=== PATIENT | male | born 2000 | race African-American/Black ===

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

== ENCOUNTER → 2018-01-21 | Outpatient (CLI) | payer BC ==
--- NOTE | 2018-01-21 10:27 | Diagnostic Imaging Report ---
INDICATION: Chest pain. TIME OF EXAM: 10:00 AM No prior studies are available for comparison. FINDINGS: The heart size is normal. The pulmonary vascularity is unremarkable. The lungs are clear. No infiltrate, effusion or pneumothorax is detected. IMPRESSION: No acute cardiopulmonary process is detected. Dictated by: Dictated on workstation # [id number]
== END ==
LOC: CARD 09:27
PROVIDERS: ATTEND Pediatrics
DX: R07.9 Chest pain, unspecified (principal)
CPT/HCPCS: 71046; 93005

== ENCOUNTER 2018-11-09 09:29 | Emergency (ER) | payer BC ==
[~2018-11-09] VITALS: Ht 182.9 cm; Wt 113.4 kg
--- OUTSIDE RECORDS SUMMARY | 2018-11-09 09:36 | XMS REPORT | Continuity of Care Document ---
Demographics Preferred Language Unknown Marital Status Unknown Gnosticist Affiliation Unknown Race Unknown Ethnic Group Unknown Author Author [facility] Address Unknown Phone Unavailable Allergies There is no data. Medications There is no data. Problems Date Dx Coded Attending Type Code Diagnosis Diagnosed By 03/07/2012 783.42 DELAYED MILESTONES Procedures There is no data. Results There is no data. Encounters ACCT No. Visit Date/Time Discharge Status Pt. Type Provider Facility Loc./Unit Complaint [id number] 03/07/2012 15:58:00 03/07/2012 23:59:59 CLS Outpatient [id number] 10/09/2012 18:54:12 RECURRING
--- NOTE | 2018-11-09 10:25 | Diagnostic Imaging Report ---
INDICATION: Fall, right shoulder pain 3 views of the right shoulder show no fracture or dislocation. There is slight irregularity of the inferior aspect of the glenoid. This could be residual of old fracture but acute process at this site cannot totally be excluded. If the patient has symptoms referrable to this area and if further evaluation is felt necessary CT may be helpful. IMPRESSION: There is slight irregularity of the inferior glenoid. No other abnormality is seen. Dictated by: Dictated on workstation # [id number]
[2018-11-09] MEDS ORDERED: HYDR-3812 PO (11:04)
--- NOTE | 2018-11-09 11:04 | ED Upper Extremity ---
General Chief Complaint: Upper Extremity Stated Complaint: ARM PAIN DUE TO FALL Nursing Triage Note: FELL LAST NIGHT ON ICE HURTING RIGHT UPPER AND LOWER ARM. STATES HE TOOK IBUPROFEN THAT DID HELP A LITTLE Nursing Sepsis Screen: No Definite Risk Source: patient Exam Limitations: no limitations Allergies and Home Medications Allergies Coded Allergies: No Known Drug Allergies (Unverified , 11/09/18) Home Medications No Active Prescriptions or Reported Meds Past Rgczkkh-Rjttub-Mxdaez Hx Patient Social History Alcohol Use: Rarely Uses Recreational Drug Use: No Smoking Status: Never a Smoker Recent Foreign Travel: No Contact w/Someone Who Travel: No Recent Infectious Disease Expo: No Past Medical History Surgeries: No Respiratory: Yes (CHILDHOOD ASTHMA) Neurological: No Gastrointestinal: No Musculoskeletal: No Endocrine: No HEENT: No Cancer: No Psychosocial: No Integumentary: No Physical Exam Vital Signs Vital Signs - First Documented 11/09/18 09:38 Temp 96.8 Pulse 71 Resp 16 B/P (MAP) 142/104 (117) Pulse Ox 97 O2 Delivery Room Air Capillary Refill : Less Than 3 Seconds Height, Weight, BMI Height: 6'" Weight: 250lbs. oz. 113.347836tn; BMI Method:Stated Progress/Results/Core Measures Results/Orders My Orders Orders - AGNIESZKA ROWLAND MD Shoulder, Right, 3 Views (11/09/18 09:54) Ct Extremity Upper Right Wo (11/09/18 10:43) Vital Signs/I&O 11/09/18 09:38 Temp 96.8 Pulse 71 Resp 16 B/P (MAP) 142/104 (117) Pulse Ox 97 O2 Delivery Room Air Blood Pressure Mean: 117 Departure Impression Primary Impression: Shoulder fracture, right Qualified Codes: S42.91XA - Fracture of right shoulder girdle, part unspecified, initial encounter for closed fracture Disposition: 01 HOME, SELF-CARE Condition: Improved Departure-Patient Inst. Decision time for Depature: 10:45 Referrals: RONNIE CORREIA MD (PCP/Family) Primary Care Physician Patient Instructions: Shoulder Fracture Add. Discharge Instructions: Keep the right arm in the immobilizer is much as possible. Avoid large movements with the arm when the immobilizer is off. You may ice in 20 minute intervals to help reduce pain and swelling. Follow up with Dr. Rudd next week. Call his office [place] morning for an appointment. You may take Tylenol (acetaminophen) up to 1000 mg every 6 hours for pain, or you may use hydrocodone as prescribed for more severe pain. All discharge instructions reviewed with patient and/or family. Voiced understanding. Scripts Hydrocodone/Acetaminophen (Hydrocodone-Acetamin 5-325 mg) 1 Each Tablet 1 TAB PO Q4-6HR PRN for PAIN-MODERATE TO SEVERE MDD 10, #10 TAB Prov: AGNIESZKA ROWLAND MD 11/09/18 AGNIESZKA ROWLAND MD Nov 09, 2018 11:04
--- NOTE | 2018-11-09 11:14 | Diagnostic Imaging Report ---
PROCEDURE: CT right upper extremity without contrast. TECHNIQUE: Multiple contiguous axial images were obtained through the right upper extremity without the use of intravenous contrast. Sagittal and coronal reformations were then performed. INDICATION: Right shoulder pain. Injury. FINDINGS: There is a 2 cm displaced fracture fragment involving the anterior inferior aspect of the glenoid. This is displaced medially less than one cm. This is displaced inferiorly approximately one cm. This may be from a shoulder dislocation but humerus is not dislocated at this time. There may be minimal flattening of the posterior humeral head associated with Hill-Sachs deformity from anterior dislocation. There is currently satisfactory alignment at the glenohumeral joint. The AC joint is intact. IMPRESSION: There is a mildly displaced fracture involving the anterior inferior aspect of the glenoid. There is some slight flattening of the posterior humeral head. Dictated by: Dictated on workstation # [id number]
[2018-11-09 11:40] VITALS: BP 160/100
== END 2018-11-09 11:40 | disposition home or self-care (01) ==
LOC: EDUNIT# 09:29 → ER 09:31
DX: S42.91XA Fracture of right shoulder girdle, part unspecified, initial encounter for closed fracture (principal); J45.909 Unspecified asthma, uncomplicated; W00.0XXA Fall on same level due to ice and snow, initial encounter
CPT/HCPCS: 73030; 73200